=== PATIENT | male | born 1980 | race Caucasian/White ===

== ENCOUNTER 2019-11-14 13:44 | Emergency (ER) | payer SELFPAY ==
--- NOTE | 2019-11-14 14:39 | ED Physician Documentation ---
History of Present Illness - Stated complaint Stated Complaint: BACK PAIN - Chief complaint Chief Complaint: Trauma Ch/Bk - History obtained from History obtained from: Patient - History of Present Illness Timing: How many weeks ago (20) - Additonal information Additional information: 39-year-old male presents to the emergency department with acute on chronic left low back pain. He reports that he has had intermittent back pain for months but it got acutely worse 4 days ago. Pain radiates down the left leg. He has no saddle anesthesia or fevers no loss of bowel control. He reports history of Crohn's so he is unable to take NSAID medications but has been trying Tylenol and gentle stretching at home. He has difficult time finding comfortable position. No history of intravenous drug use cancer. No recent trauma. Review of Systems Constitutional: reports: Reviewed and negative Eyes: reports: Reviewed and negative Nose: reports: Reviewed and negative Throat: reports: Reviewed and negative Cardiac: reports: Reviewed and negative Respiratory: reports: Dyspnea GI: denies: Abdominal Pain, Abdominal Swelling, Nausea, Vomiting, Diarrhea : reports: Reviewed and negative Skin: reports: Reviewed and negative Musculoskeletal: reports: Back pain. denies: Neck pain, Extremity pain, Joint pain, Extremity swelling Neurologic: denies: Generalized weakness, Focal weakness, Numbness, Syncope, Seizure, Headache, Head injury PD PAST MEDICAL HISTORY - Past Medical History GI: Crohn's disease - Past Surgical History Past Surgical History: Yes - Present Medications Home Medications: Ambulatory Orders Medication Instructions Recorded Confirmed Methocarbamol [Robaxin-750] 750 mg PO TID PRN #30 tablet 11/14/19 predniSONE [Prednisone] 40 mg PO DAILY #10 tablet 11/14/19 - Allergies Allergies/Adverse Reactions: Allergies Allergy/AdvReac Type Severity Reaction Status Date / Time No Known Drug Allergies Allergy Verified 11/14/19 13:57 - Social History Does the pt smoke?: Yes Smoking Status: Current every day smoker Does the pt drink ETOH?: Yes PD ED PE EXPANDED - General General: Alert, No acute distress, Well developed/nourished, In Pain - Cardiac Cardiac: Regular Rate - Respiratory Respiratory: Clear to ausultation omid - Back Back: Soft tissue tenderness, Limited ROM, Straight leg raise + L, Other (Left lower paraspinous TTP; no midline TTP. motor strength 5/5 BLE). No: Vertebral tenderness Results - Vitals Vitals: Vital Signs - 24 hr 11/14/19 13:52 Temperature 36.8 C Heart Rate 101 H Respiratory 17 Rate Blood Pressure 140/63 H O2 Saturation 98 Oxygen O2 Source Room air PD MEDICAL DECISION MAKING - ED course Complexity details: considered differential, d/w patient ED course: 39-year-old male presents the emergency department with acute on chronic left low back pain. No red flags. His exam is most consistent with sciatica. Due to his history of Crohn's disease is unable to take NSAID medic patient. I will try a lot a short steroid burst as well as a muscle relaxer. I have also advised that he attempt sciatica specific stretches and try and establish with a primary care doctor for longer-term follow-up. Emergent return precautions discussed Departure - Departure Disposition: 01 Home, Self Care Clinical Impression: Left low back pain Qualifiers: Chronicity: chronic Sciatica presence: with sciatica Sciatica laterality: sciatica of left side Qualified Code(s): M54.42 - Lumbago with sciatica, left side; G89.29 - Other chronic pain Condition: Stable Record reviewed to determine appropriate education?: Yes Instructions: ED Sciatica Prescriptions: predniSONE [Prednisone] 40 mg PO DAILY #10 tablet Methocarbamol [Robaxin-750] 750 mg PO TID PRN #30 tablet PRN Reason: Spasms Comments: Marc please practice doing sciatica specific stretches. I have prescribed you a short course of a steroid to see if it helps with your low back pain. Have also prescribed a limited amount of a muscle relaxer. In the long-term you would benefit from being seen by primary care doctor who may be able to refer you to physical therapy. If you develop loss of bowel or bladder control, have fevers or any other worsening symptoms please return to the ER for a second look
[2019-11-14 14:55] VITALS: BP 115/63
[2019-11-14 15:27] LABS: GLUCOSE, URINE (UA) NEGATIVE (NEGATIVE); KETONES,URINE (UA) >=80 mg/dL (NEGATIVE); LEUKOCYTE ESTERASE, URINE NEGATIVE (NEGATIVE); NITRITE,URINE NEGATIVE (NEGATIVE); OCCULT BLOOD,URINE NEGATIVE (NEGATIVE); PH,URINE 5.5 PH (5.0-7.5); PROTEIN,URINE NEGATIVE (NEGATIVE); UROBILINOGEN,URINE 0.2 (NORMAL) E.U./dL (NORMAL)
[2019-11-14 15:35] LABS: BILIRUBIN,URINE NEGATIVE (NEGATIVE); CLARITY,URINE CLEAR (CLEAR); ICTOTEST,URINE NEGATIVE
== END 2019-11-14 15:43 | disposition home or self-care (01) ==
LOC: ED 13:44
DX: M54.42 Lumbago with sciatica, left side (principal); G89.29 Other chronic pain; Z87.19 Personal history of other diseases of the digestive system; K59.00 Constipation, unspecified; R30.0 Dysuria; F17.200 Nicotine dependence, unspecified, uncomplicated
CPT/HCPCS: 81001; 81003; 87086; 99283

== ENCOUNTER 2019-12-24 14:16 | Emergency (ER) | payer OTHER ==
[2019-12-24] MEDS ORDERED: HYDROmorphone 1 MG/ML CARPUJECT IVP STA ×2 (15:31→17:04)
[2019-12-24] MEDS ORDERED: SODIUM CHLORIDE 0.9% 1,000 ML IV STA (15:33)
--- NOTE | 2019-12-24 15:37 | ED Physician Documentation ---
History of Present Illness - Stated complaint Stated Complaint: GLF,BACK PX,SOA - Chief complaint Chief Complaint: Trauma Ch/Bk - History obtained from History obtained from: Patient - History of Present Illness Timing: Prior to arrival - Additonal information Additional information: 39-year-old male presents to the emergency department for evaluation of right l ower and posterior rib pain. 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 He reports that he felt an immediate pop in his chest and it took him nearly half an hour before the pain subsided enough for him to move. He has no history of previous falls or trauma. He denies striking his head or losing consciousness. He does not take any anticoagulation. This gentleman was driven into the emergency department via POV. He does report a history of Crohn's for which she is not medicated. He denies taking any prescribed medications. He is a smoker. Social drinker. Denies illicit drug use. Review of Systems Constitutional: denies: Fever Eyes: reports: Reviewed and negative Ears: reports: Reviewed and negative Nose: reports: Reviewed and negative Throat: reports: Reviewed and negative Cardiac: denies: Chest pain / pressure, Palpitations, Pedal edema, Calf pain Respiratory: reports: Dyspnea (with deep breath) GI: denies: Abdominal Pain, Nausea, Vomiting : denies: Dysuria Skin: denies: Rash, Lesions Musculoskeletal: reports: Back pain (right lowr posterior rib margins) PD PAST MEDICAL HISTORY - Past Medical History GI: Crohn's disease Psych: Depression - Past Surgical History Past Surgical History: Yes - Present Medications Home Medications: Ambulatory Orders Medication Instructions Recorded Confirmed Methocarbamol [Robaxin-750] 750 mg PO TID PRN #30 tablet 11/14/19 predniSONE [Prednisone] 40 mg PO DAILY #10 tablet 11/14/19 Ibuprofen [Motrin] 600 mg PO Q6H PRN #30 tab 12/24/19 Oxycodone HCl/Acetaminophen 1 - 2 each PO Q6H PRN #25 tablet 12/24/19 [Percocet 5-325 mg Tablet] - Allergies Allergies/Adverse Reactions: Allergies Allergy/AdvReac Type Severity Reaction Status Date / Time No Known Drug Allergies Allergy Verified 12/24/19 14:27 - Social History Does the pt smoke?: Yes Smoking Status: Current every day smoker Does the pt drink ETOH?: Yes Substance Use and Type: Marijuana - Immunizations Immunizations are current?: Yes PD ED PE EXPANDED - General General: Alert, In Pain, In distress, Other (wearing painting clothes) - Neck Neck: Supple w/out meningeal sx, No tenderness. No: Limited ROM (Full ROM of cervical spine) - Cardiac Cardiac: Regular Rate, Regular Rhythm, Radial strong equal, Cap refill < 2 sec. No: Murmur Present - Respiratory Respiratory: Clear to ausultation omid. No: Distress, Labored - Abdomen Abdomen: Normal Bowel sounds. No: Tender to palpation - Back Back: Soft tissue tenderness (Significant tenderness right lower lateral and posterior ribs with even light palpation. No ecchymosis or crepitus. No midline cervical thoracic or lumbar spinous tenderness elicited.) - Extremities Extremities: Normal - Neuro Neuro: Alert and Oriented X 3, CNII-XII intact, Normal speech - GCS Eye Opening: Spontaneous Motor: Obeys Commands Verbal: Oriented Total: 15 Results - Vitals Vitals: Vital Signs - 24 hr 12/24/19 12/24/19 12/24/19 14:22 14:53 17:26 Temperature 36.7 C Heart Rate 72 64 62 Respiratory 16 16 18 Rate Blood Pressure 123/67 116/81 H 125/72 O2 Saturation 100 100 100 Oxygen O2 Source Room air - Labs Labs: Laboratory Tests 12/24/19 12/24/19 12/24/19 15:55 15:55 15:55 WBC 11.8 H RBC 4.05 L Hgb 12.9 L Hct 39.1 L MCV 96.5 H MCH 31.9 H MCHC 33.0 RDW 13.4 Plt Count 271 MPV 9.8 Neut # (Auto) 9.9 H Lymph # (Auto) 0.9 L Tift # (Auto) 0.7 Eos # (Auto) 0.2 Baso # (Auto) 0.1 Absolute Nucleated RBC 0.00 Nucleated RBC % 0.0 PT 11.7 INR 1.1 APTT 27.6 Sodium 139 Potassium 3.9 Chloride 105 Carbon Dioxide 25 Anion Gap 9.0 BUN 11 Creatinine 0.7 Estimated GFR (MDRD) 126 Glucose 96 Calcium 8.9 Total Bilirubin 0.4 AST 26 ALT 29 Alkaline Phosphatase 66 Total Protein 6.9 Albumin 3.9 Globulin 3.0 Albumin/Globulin Ratio 1.3 Lipase 45 Urine Color Urine Clarity Urine pH Ur Specific Lapaz Urine Protein Urine Glucose (UA) Urine Ketones Urine Occult Blood Urine Nitrite Urine Bilirubin Urine Urobilinogen Ur Leukocyte Esterase Ur Microscopic Review Urine Culture Comments 12/24/19 16:00 WBC RBC Hgb Hct MCV MCH MCHC RDW Plt Count MPV Neut # (Auto) Lymph # (Auto) Tift # (Auto) Eos # (Auto) Baso # (Auto) Absolute Nucleated RBC Nucleated RBC % PT INR APTT Sodium Potassium Chloride Carbon Dioxide Anion Gap BUN Creatinine Estimated GFR (MDRD) Glucose Calcium Total Bilirubin AST ALT Alkaline Phosphatase Total Protein Albumin Globulin Albumin/Globulin Ratio Lipase Urine Color YELLOW Urine Clarity CLEAR Urine pH 6.0 Ur Specific Lapaz 1.025 Urine Protein NEGATIVE Urine Glucose (UA) NEGATIVE Urine Ketones NEGATIVE Urine Occult Blood NEGATIVE Urine Nitrite NEGATIVE Urine Bilirubin NEGATIVE Urine Urobilinogen 0.2 (NORMAL) Ur Leukocyte Esterase NEGATIVE Ur Microscopic Review NOT INDICATED Urine Culture Comments NOT INDICATED - Rads (name of study) CXR Radiology: Final report received (No acute cardiopulmonary process) PD MEDICAL DECISION MAKING - ED course Complexity details: reviewed results, re-evaluated patient, considered differential, d/w patient, d/w product consultant (Rashawn Carmen (gen surg)) ED course: 39-year-old gentleman comes to the emergency department with right lateral and posterior rib and chest wall pain after a fall while painting of approximately 6 feet down stairs. He did not strike his head or lose consciousness. However he was exquisitely tender in the right lower and posterior chest wall. A CT of his abdomen showed no intra-abdominal process. A CT of his chest did show 11th and 12th right rib fractures. There is no pneumothorax or pleural effusion. He does not have a flail chest. He had moderate pain control here in the emergency department with Dilaudid. I have asked the nursing staff to teach him the incentive spirometer. I also discussed the case with Dr. Carmen who does recommend follow-up with general surgery within the week. He will be discharged with a prescription for ibuprofen and Percocet. I did advise the patient to schedule very closely with a labor and indices provider as he will need some time off work. At this time I will give him 1 week from further duty. L&I paperwork completed Departure - Departure Disposition: Home, Self Care Clinical Impression: Work related injury, Contusion of chest wall with intact skin Ribs, multiple fractures Qualifiers: Encounter type: initial encounter Fracture type: closed Laterality: right Qualified Code(s): S22.41XA - Multiple fractures of ribs, right side, initial encounter for closed fracture Fall Qualifiers: Encounter type: initial encounter Qualified Code(s): W19.XXXA - Unspecified fall, initial encounter Condition: Stable Record reviewed to determine appropriate education?: Yes Instructions: ED Fx Rib Follow-Up: Chadwick Carmen MD [Provider Admit Priv/Credential] - Prescriptions: Ibuprofen [Motrin] 600 mg PO Q6H PRN #30 tab PRN Reason: Pain Oxycodone HCl/Acetaminophen [Percocet 5-325 mg Tablet] 1 - 2 each PO Q6H PRN #25 tablet PRN Reason: pain Comments: Marc unfortunately the CT scan of your chest does show that your right 11th and 12th ribs are fractured. Please do the splinting at home as we discussed. I would like you to take the ibuprofen with food 3 times a day for the next 5 days. I have prescribed Percocet for severe pain only. Do not drive when taking Percocet it will impair your ability to operate motor vehicles. It is important that you schedule yourself with a labor and industries provider for follow-up within the next week. I would like you to remain off work until cleared by labor and industries. Please use the incentive spirometer at home to help ensure that you do not develop pneumonia as rib fractures make it painful for people to breathe deeply. If at any point you develop shortness of air, have a fever, have bloody sputum or feel that your symptoms are not well controlled please return to the emergency department
[2019-12-24] MEDS ORDERED: IOVERSOL 320 50 ML VIAL ONE (15:44)
[2019-12-24] MEDS ORDERED: IOVERSOL 320 100 ML VIAL IVP ONE ×2 (15:44→17:26)
[2019-12-24 16:01] LABS: BASOPHILS # (AUTO) 0.1 10^3/uL (0.0-0.1); BASOPHILS % (AUTO) 0.4 %; EOSINOPHILS # (AUTO) 0.2 10^3/uL (0.0-0.7); EOSINOPHILS % (AUTO) 1.9 %; HGB - HEMOGLOBIN 12.9 g/dL (14.0-18.0); LYMPHOCYTES # (AUTO) 0.9 10^3/uL (1.5-3.5); LYMPHOCYTES % (AUTO) 7.4 %; MEAN CORPUSCULAR HEMOGLOBIN 31.9 pg (27.0-31.0); MEAN CORPUSCULAR VOLUME 96.5 fL (80.0-94.0); MEAN PLATELET VOLUME 9.8 fL (7.4-11.4); MONOCYTES # (AUTO) 0.7 10^3/uL (0.0-1.0); MONOCYTES % (AUTO) 5.9 %; NEUTROPHILS # (AUTO) 9.9 10^3/uL (1.5-6.6); NEUTROPHILS % (AUTO) 83.8 %; PLT - PLATELET COUNT 271 10^3/uL (130-450); RED BLOOD COUNT 4.05 10^6/uL (4.70-6.10); RED CELL DISTRIBUTION WIDTH 13.4 % (12.0-15.0); WHITE BLOOD COUNT 11.8 x10^3/uL (4.8-10.8)
--- NOTE | 2019-12-24 16:03 | XRAY Report ---
PROCEDURE: Chest 1 View X-Ray INDICATIONS: Chest pain TECHNIQUE: One view of the chest was acquired. COMPARISON: 05/21/2010 chest radiograph FINDINGS: Surgical changes and devices: None. Lungs and pleura: No pleural effusions or pneumothorax. Lungs are clear. Mediastinum: Mediastinal contours appear normal. Heart size is normal. Bones and chest wall: No radiographically apparent displaced rib fracture. Overlying soft tissues den ear unremarkable. IMPRESSION: No acute finding. Reviewed by: Tony Martino MD on 12/24/2019 4:02 PM PDT Approved by: Tony Martino MD on 12/24/2019 4:02 PM PDT Station ID: [id number]
[2019-12-24 16:07] LABS: INR 1.1 (0.8-1.2); PT - PROTHROMBIN TIME 11.7 secs (9.9-12.6)
[2019-12-24 16:13] LABS: ALBUMIN 3.9 g/dL (3.2-5.5); ALBUMIN/GLOBULIN RATIO 1.3 (1.0-2.2); BILIRUBIN,TOTAL 0.4 mg/dL (0.2-1.0); CALCIUM 8.9 mg/dL (8.5-10.3); CREATININE 0.7 mg/dL (0.6-1.2); TOTAL PROTEIN 6.9 g/dL (6.7-8.2)
[2019-12-24 16:13] LABS: BILIRUBIN,URINE NEGATIVE (NEGATIVE); CLARITY,URINE CLEAR (CLEAR); GLUCOSE, URINE (UA) NEGATIVE (NEGATIVE); KETONES,URINE (UA) NEGATIVE (NEGATIVE); LEUKOCYTE ESTERASE, URINE NEGATIVE (NEGATIVE); NITRITE,URINE NEGATIVE (NEGATIVE); OCCULT BLOOD,URINE NEGATIVE (NEGATIVE); PROTEIN,URINE NEGATIVE (NEGATIVE); UROBILINOGEN,URINE 0.2 (NORMAL) E.U./dL (NORMAL)
[2019-12-24 16:14] LABS: PARTIAL THROMBOPLASTIN TIME 27.6 secs (24.9-33.3)
--- NOTE | 2019-12-24 17:01 | CT Report ---
PROCEDURE: Abdomen/Pelvis W INDICATIONS: Trauma, fall 6 feet onto stairs; eval intraabdominal trauma CONTRAST: IV CONTRAST: Optiray 320 ml: 100 PO CONTRAST: *NO PO CONTRAST TECHNIQUE: After the administration of intravenous contrast, 5 mm thick sections acquired from the diaphragms to the symphysis. 5 mm thick coronal and sagittal reformats were acquired. For radiation dose reducti on, the following was used: automated exposure control, adjustment of mA and/or kV according to geeta ent size. COMPARISON: None. FINDINGS: Image quality: Excellent. ABDOMEN: Lung bases: Lung bases are clear. Heart size is normal. Solid organs: No findings of solid abdominal visceral injury or other acute finding of the solid abdo toshia viscera. Peritoneum and bowel: Bowel loops demonstrate normal wall thickness and caliber. No free fluid or a ir. Nodes and vessels: No retroperitoneal or mesenteric adenopathy by size criteria. Aorta and inferior vena cava are normal in size. Miscellaneous: No ventral hernias. PELVIS: Genitourinary: Bladder wall thickness is normal. Miscellaneous: No inguinal hernias or adenopathy. Bones: Mildly angulated fracture of the right 12th rib at the costovertebral junction (series 3 image 9). Nondisplaced fracture of the right 11th rib posteriorly (series 3 image 2). Lumbar vertebral bod y heights and lower thoracic vertebral body heights are maintained. No evidence of fracture in the ve rtebral column. Pelvic osseous structures intact. IMPRESSION: No evidence of intra-abdominal injury. Right 11th and 12th rib fractures. Reviewed by: Tony Martino MD on 12/24/2019 5:00 PM PDT Approved by: Tony Martino MD on 12/24/2019 5:00 PM PDT Station ID: [id number]
--- NOTE | 2019-12-24 17:04 | CT Report ---
PROCEDURE: CHEST W INDICATIONS: FALL, CONCERN FOR RIB FRACTURE CONTRAST: IV CONTRAST: Optiray 320 ml: 100 PO CONTRAST: *NO PO CONTRAST TECHNIQUE: After the administration of intravenous contrast, 5 mm thick sections acquired from the pulmonary api anita to the posterior costophrenic angles. 7 mm thick coronal MIP reformats were acquired. For radia tion dose reduction, the following was used: automated exposure control, adjustment of mA and/or kV according to patient size. COMPARISON: None. FINDINGS: Image quality: Excellent. Lungs and pleura: No acute air space opacities. No pleural effusions or pneumothorax. Central and peripheral airways are patent and normal in caliber. Mediastinum: Heart size is normal. No pericardial effusion. No mediastinal or hilar adenopathy by size criteria. Thoracic aorta and central pulmonary arteries are normal in size. Esophagus is soni l in caliber. No hiatal hernia. Bones and chest wall: Mildly angulated fracture of the right 12th rib at the costovertebral junction (series 2 image 54). Nondisplaced fracture the right 11th rib posteriorly (series 2 image 47). Abdomen: Visualized upper abdominal solid organs appear normal. Upper abdominal bowel loops are nor mal in caliber. IMPRESSION: Nondisplaced 11th rib fracture. Mildly angulated 12th rib fracture. No pneumothorax, hemothorax, or pulmonary contusion. Reviewed by: Tony Martino MD on 12/24/2019 5:03 PM PDT Approved by: Tony Martino MD on 12/24/2019 5:03 PM PDT Station ID: [id number]
[2019-12-24 17:28] VITALS: BP 125/72
== END 2019-12-24 18:32 | disposition home or self-care (01) ==
LOC: ED 14:16
DX: S22.41XA Multiple fractures of ribs, right side, initial encounter for closed fracture (principal); W10.8XXA Fall (on) (from) other stairs and steps, initial encounter; Y99.0 Civilian activity done for income or pay; F17.200 Nicotine dependence, unspecified, uncomplicated
CPT/HCPCS: 1040M; 36415; 71045; 71260; 74177; 80053; 81003; 83690; 85025; 85610; 85730; 96361; 96374; 96376; 99284; J1170; Q9967; 81001; 87086

== ENCOUNTER 2020-10-05 13:16 | Outpatient (CLI) | payer OTHER ==
--- NOTE | 2020-10-05 17:08 | XRAY Report ---
PROCEDURE: Lumbar Spine Complete INDICATIONS: RADICULOPATHY TECHNIQUE: 4 views of the lumbar spine were acquired. COMPARISON: None. FINDINGS: Bones: 5 pal-[id number]-atynftt vertebrae are present. There is normal bony alignment. Mild convex left cur vature of the lumbar spine. No vertebral body compression fractures. No suspicious bony lesions. Mil d L4-L5 and moderate L5-S1 degenerative disc changes. Oblique views demonstrate no pars interarticula ris defects. Soft tissues: Overlying bowel gas pattern is normal. No suspicious soft tissue calcifications. IMPRESSION: 1. Multilevel degenerative disc disease. 2. No fracture. No acute osseous lesion. If there is continued clinical concern for pathology, then M RI should be considered for further evaluation. Reviewed by: Celina Valdivia MD, PhD on 10/05/2020 5:07 PM PDT Approved by: Celina Valdivia MD, PhD on 10/05/2020 5:07 PM PDT Station ID: [id number]
== END 2020-10-05 13:17 | disposition home or self-care (01) ==
LOC: DI.N 13:16
PROVIDERS: ATTEND Registered Nurse
DX: M51.36 Other intervertebral disc degeneration, lumbar region (principal); M51.37 Other intervertebral disc degeneration, lumbosacral region